=== PATIENT | female | born 1935 | race Caucasian/White ===

== ENCOUNTER 2018-07-16 16:34 | Observation (INO) ==
--- NOTE | 2018-07-16 17:42 | ED ---
HPI General Chief Complaint: Chest Pain Stated Complaint: Poss Cardiac Time Seen by Provider: 07/16/18 17:00 Source: patient Limitations: no limitations History of Present Illness HPI narrative: Patient is an 83-year-old female, past medical history significant for hypertension, atrial fibrillation on Coumadin, who presents with complaint of intermittent chest tightness/heaviness over the last 2-3 days. She has had intermittent dyspnea as well. No nausea nor vomiting. No cough nor congestion. No fever nor chills. No leg swelling or immobilization. She is not sure if exertion changes the pain at all. She does report that she has had increasing stress at home. complaint: chest pain Complete Quality Measures for STEMI Alert Patients STEMI Alert: No Onset (ago): day(s) Duration: intermittent Onset: during rest Pain location: substernal Severity: moderate Quality: tightness and heaviness Pain radiation: none Relieving factors: nothing Related Data Home Medications Medication Instructions Recorded Confirmed alendronate 70 mg PO QWEEK 07/16/18 07/16/18 alprazolam 0.5 mg PO BID PRN 07/16/18 07/16/18 diltiazem HCl 180 mg PO DAILY 07/16/18 07/16/18 ferrous sulfate 324 mg PO DAILY 07/16/18 07/16/18 latanoprost 0.005 % EACH EYE DAILY 07/16/18 07/16/18 levothyroxine 50 mcg PO DAILY 07/16/18 07/16/18 lisinopril 10 mg PO DAILY 07/16/18 07/16/18 pantoprazole 40 mg PO DAILY 07/16/18 07/16/18 warfarin 5 mg PO DAILY 07/16/18 07/16/18 Allergies Allergy/AdvReac Type Severity Reaction Status Date / Time amlodipine Allergy Severe Hives Unverified 07/16/18 16:43 diazepam Allergy Intermediate Convulsion Unverified 06/24/17 02:32 Sulfa (Sulfonamide Allergy Intermediate Hives Unverified 06/24/17 02:32 Antibiotics) Review of Systems ROS: all other systems reviewed are negative [facility] Social History Social History Substance History: No History of Abuse Second Hand Smoke Exposure: No Smoking Status: Never smoker How Often Do You Have a Drink Containing Alcohol: Never Immunization History Tetanus Immunization: Unsure Hx Influenza Vaccine This Season: No Exam Narrative Exam Narrative: GENERAL: Well-appearing, elderly female in no acute distress SKIN: Focused skin assessment warm/dry. No rashes. HEAD: Atraumatic. Normocephalic. EYES: Pupils equal and round. No scleral icterus. No injection or drainage. ENT: No nasal bleeding or discharge. Mucous membranes pink and moist. NECK: Trachea midline. No JVD. CARDIOVASCULAR: Regular rate and rhythm. No murmur appreciated. Intact and equal peripheral pulses. RESPIRATORY: No accessory muscle use. Clear to auscultation. Breath sounds equal bilaterally. GASTROINTESTINAL: Abdomen soft, non-tender, nondistended. Hepatic and splenic margins not palpable. MUSCULOSKELETAL: No obvious deformities. No clubbing. No cyanosis. No edema. NEUROLOGICAL: Awake and alert. No obvious cranial nerve deficits. Motor grossly within normal limits. Normal speech. PSYCHIATRIC: Appropriate mood and affect; insight and judgment normal. Course Initial Documented Vital Signs Temperature 99.0 F 07/16/18 17:02 Pulse Rate 77 07/16/18 17:02 Respiratory Rate 18 07/16/18 17:02 Blood Pressure 157/76 H 07/16/18 17:02 Pulse Oximetry 97 07/16/18 17:02 Last Documented Vital Signs Temperature 99.0 F 07/16/18 17:02 Pulse Rate 69 07/16/18 19:44 Respiratory Rate 16 07/16/18 19:44 Blood Pressure 139/69 07/16/18 19:44 Pulse Oximetry 99 07/16/18 19:44 Medical Decision Making [facility] Narrative Medical decision making narrative: Patient is an 83-year-old female who presents with complaint of chest pain that has been intermittent over the last several days. EKG is without acute ischemic changes. She took aspirin at home prior to arrival and pain improved with nitro here. Chest x-ray and labs including troponin are unremarkable. She has been placed in the chest pain center for serial troponins and likely stress test in the morning. Patient and her son are agreeable to this plan. All questions have been answered. Medical Screen Exam Complete: Yes Emergency Medical Condition: Yes Differential Diagnosis Differential Diagnosis: Differential diagnosis includes but is not limited to acute coronary syndrome, pneumonia, pneumothorax, Prinzmetal's angina, or electrolyte abnormality. Medical Records Medical records reviewed: Yes I reviewed the patient's medical records. Lab Data Lab results reviewed: Yes I reviewed the patient's lab results. Result diagrams: 07/16/18 17:45 07/16/18 17:45 Lab Results 07/16/18 07/16/18 07/16/18 Range/Units 17:45 17:45 17:45 WBC 6.4 (4.0-11.0) th/mm3 RBC 4.37 (4.00-5.30) mil/mm3 Hgb 12.9 (11.6-15.3) gm/dL Hct 36.4 (35.0-46.0) % MCV 83.3 (80.0-100.0) fL MCH 29.4 (27.0-34.0) pg MCHC 35.3 (32.0-36.0) % RDW 13.5 (11.6-17.2) % Plt Count 170 (150-450) th/mm3 MPV 8.6 (7.0-11.0) fL PT (9.8-11.6) sec INR Ratio Sodium 141 Cancelled (136-145) meq/L Potassium 4.4 Cancelled (3.5-5.1) meq/L Chloride 106 Cancelled (98-107) meq/L Carbon Dioxide 26.9 Cancelled (21.0-32.0) meq/L Anion Gap 8 Cancelled (5-15) meq/L BUN 20 H Cancelled (7-18) mg/dL Creatinine 0.72 Cancelled (0.50-1.00) mg/dL Estimated GFR 77 L Cancelled (>89) mL/min Random Glucose 95 Cancelled (74-106) mg/dL Calcium 9.3 Cancelled (8.5-10.1) mg/dL Troponin I Less than 0.02 L (0.02-0.05) ng/mL 07/16/18 Range/Units 17:45 WBC (4.0-11.0) th/mm3 RBC (4.00-5.30) mil/mm3 Hgb (11.6-15.3) gm/dL Hct (35.0-46.0) % MCV (80.0-100.0) fL MCH (27.0-34.0) pg MCHC (32.0-36.0) % RDW (11.6-17.2) % Plt Count (150-450) th/mm3 MPV (7.0-11.0) fL PT 17.7 H (9.8-11.6) sec INR 1.7 Ratio Sodium (136-145) meq/L Potassium (3.5-5.1) meq/L Chloride (98-107) meq/L Carbon Dioxide (21.0-32.0) meq/L Anion Gap (5-15) meq/L BUN (7-18) mg/dL Creatinine (0.50-1.00) mg/dL Estimated GFR (>89) mL/min Random Glucose (74-106) mg/dL Calcium (8.5-10.1) mg/dL Troponin I (0.02-0.05) ng/mL Imaging Data Attestation: I personally reviewed and interpreted this imaging study as follows : My impression: Unremarkable. Radiologist's impression: Chest X-Ray 07/16/18 17:25 CONCLUSION: Mild interstitial prominence with normal heart size correlation suggested. ECG Data EKG Prior to Arrival: No Attestation: I personally reviewed and interpreted this ECG as follows: Discharge Plan Discharge Disposition Patient Disposition: 30 Still Patient Discharge Condition Condition: Stable Discharge Details Diagnosis: Chest pain, rule out acute myocardial infarction Physicians Team ED Provider: Nicolasa Loyd Primary Care Provider: Gabriel Fernández V Attending Provider: Melissa Prieto ED Status: Admitted Observation Patient
--- NOTE | 2018-07-16 17:51 | XR ---
EXAM DATE: 07/16/2018 5:46 PM EDT AGE/SEX: 83 years / Female INDICATIONS: . Chest pain. Dry cough. CLINICAL DATA: This is the patient's initial encounter. Patient reports that signs and symptoms have been present for 2 days and indicates a pain score of 0/10. MEDICAL/SURGICAL HISTORY: Hypertension. . Pacemaker. COMPARISON: POI, XR CHEST PA AND LAT, 02/25/2017. . FINDINGS: Pacemaker left chest. Mild interstitial prominence with normal cardiac silhouette. No pleural effusio n, pneumothorax or infiltrate. The portion of the bony skeleton visualized is unremarkable. CONCLUSION: Mild interstitial prominence with normal heart size correlation suggested. Electronically signed by: Thai Stewart MD 07/16/2018 5:50 PM EDT
[2018-07-16 18:12] LABS: Hematocrit 36.4 % (35.0-46.0); Hemoglobin 12.9 gm/dL (11.6-15.3); Mean Corpuscular HGB Conc 35.3 % (32.0-36.0); Mean Corpuscular Hemoglobin 29.4 pg (27.0-34.0); Mean Corpuscular Volume 83.3 fL (80.0-100.0); Mean Platelet Volume 8.6 fL (7.0-11.0); Platelet Count 170 th/mm3 (150-450); Red Blood Count 4.37 mil/mm3 (4.00-5.30); Red Cell Distribution Width 13.5 % (11.6-17.2); White Blood Count 6.4 th/mm3 (4.0-11.0)
[2018-07-16 18:27] LABS: INR 1.7 Ratio; Prothrombin Time 17.7 sec (9.8-11.6)
[2018-07-16 18:36] LABS: Anion Gap 8 meq/L (5-15); Blood Urea Nitrogen 20 mg/dL (7-18); Calcium 9.3 mg/dL (8.5-10.1); Carbon Dioxide 26.9 meq/L (21.0-32.0); Chloride 106 meq/L (98-107); Glomerular Filtration Rate 77 mL/min (>89); Glucose,Random 95 mg/dL (74-106); Sodium 141 meq/L (136-145)
[2018-07-16 18:37] LABS: Potassium 4.4 meq/L (3.5-5.1)
[2018-07-16 21:54] LABS: Creatine Kinase 56 U/L (26-192)
[2018-07-16] MEDS ORDERED: Acetaminophen 500 MG Tablet PO PRN (23:27)
[2018-07-17 01:00] LABS: Creatine Kinase 58 U/L (26-192)
--- NOTE | 2018-07-17 09:09 | P.HPCA ---
History of Present Illness Primary Care Physician: Gabriel Fernández MD Chief Complaint: Chest tightness History of Present Illness: 83 year old female with history atrial fibrillation, hypertension, and emergency room for further evaluation intermittent, nonexertional chest pressure. Onset 2-3 days. Characterized as "tingling and tightness." Location substernal. No radiation. Initially severity was mild. Yesterday became anxious regarding living situation. Reports becoming "trembly," nauseous , with moderate chest tightness. Duration constant, never resolving completely. Currently described as "mild." Breathing did not affect discomfort. No particular movement or position made pain better or worse. No relieving factors. Yesterday afternoon a landlord passenger relations representative was at apartment. Endorses becoming anxious. Apparently apartment currently leaking water from AC unit causing mold in the [place]. Sap Specialist appointment was to scheduled repair of damage. The passenger relations representative became concerned over patients symptoms and called EMS. Endorse history of anxiety. Patient foundry metallurgist is Dr. Lozano. No known CAD, diabetes, or hyperlipidemia. No recent illness, fever, or injury. Currently has a nonproductive intermittent cough she relates to allergies. Past cardiac testing 12/16/14 Lexiscan-normal exam. EF greater than 70%. Patient's foundry metallurgist is Dr. Lozano. No recent cardiac testing. Does not recall ever having cardiac catheterization. Pacemaker placed while living in [place] approximately 6 years ago, placed for "an arrhythmia." Social history Lives with son. Lifelong non-smoker. Denies any alcohol or recreational drug use. Endorses an active lifestyle. Ambulates independently. - Diagnosis (1) Atypical chest pain (2) History of atrial fibrillation Review of Systems All other systems reviewed negative except as stated in HPI PMFSH - History History Provided By: Patient - Medical History Medical History: Medical History (Last Updated 07/17/18 @ 09:50 by KIKI Stockton) History of cardiac pacemaker (Acute) Anxiety Atrial fibrillation Hypertension - Social History I have reviewed the patient's Social History: Yes - Tobacco History Second Hand Smoke Exposure: No Smoking Status: Never smoker - Alcohol History How Often Do You Have a Drink Containing Alcohol: Never - Substance Use History Substance History: No History of Abuse - Travel History Recent Travel in the [place] Within the Last 8 Weeks: No Recent Travel Out of the Country Within the Last 8 Weeks: No - Immunization History Tetanus Immunization: Unsure Hx Influenza Vaccine This Season: No Medications and Allergies Active Medications: Active Medications Acetaminophen (Tylenol) 500 mg PO Q4H PRN PRN Reason: H/A Last Admin: 07/16/18 23:49 Dose: 500 mg Ondansetron HCl (Zofran Inj) 4 mg IV.PUSH Q6H PRN PRN Reason: NAUSEA Sodium Chloride (Ns Flush) 2 ml IV.FLUSH UNSCH PRN PRN Reason: FLUSH AFTER USING IV ACCESS Sodium Chloride (Ns Flush) 2 ml IV.FLUSH BID RONAK Last Admin: 07/17/18 08:51 Dose: 2 ml Sodium Chloride (Ns Flush) 2 ml IV.FLUSH PRN PRN PRN Reason: FLUSH AFTER USING IV ACCESS Allergies Allergy/AdvReac Type Severity Reaction Status Date / Time amlodipine Allergy Severe Hives Unverified 07/16/18 16:43 diazepam Allergy Intermediate Convulsion Unverified 06/24/17 02:32 Sulfa (Sulfonamide Allergy Intermediate Hives Unverified 06/24/17 02:32 Antibiotics) Home Medications Medication Instructions Recorded Confirmed Type alendronate 70 mg PO QWEEK 07/16/18 07/16/18 History alprazolam 0.5 mg PO BID PRN 07/16/18 07/16/18 History diltiazem HCl 180 mg PO DAILY 07/16/18 07/16/18 History ferrous sulfate 324 mg PO DAILY 07/16/18 07/16/18 History latanoprost 0.005 % EACH EYE DAILY 07/16/18 07/16/18 History levothyroxine 50 mcg PO DAILY 07/16/18 07/16/18 History lisinopril 10 mg PO DAILY 07/16/18 07/16/18 History pantoprazole 40 mg PO DAILY 07/16/18 07/16/18 History warfarin 5 mg PO DAILY 07/16/18 07/16/18 History Exam Vital signs: Vital Signs 07/16/18 17:02 07/16/18 17:17 07/16/18 17:54 Temperature 99.0 F Pulse Rate 77 Respiratory Rate 18 18 Blood Pressure 157/76 H Pulse Oximetry 97 97 07/16/18 18:00 07/16/18 19:44 07/16/18 21:10 Temperature Pulse Rate 65 69 69 Respiratory Rate 16 Blood Pressure 153/72 H 139/69 Pulse Oximetry 97 99 96 07/16/18 21:46 07/17/18 00:01 07/17/18 00:33 Temperature 98.4 F 98.2 F Pulse Rate 72 71 Respiratory Rate 18 18 20 Blood Pressure 148/72 H 149/76 H Pulse Oximetry 98 97 07/17/18 04:40 07/17/18 08:08 Temperature 98.0 F 98.0 F Pulse Rate 73 71 Respiratory Rate 18 16 Blood Pressure 127/70 154/76 H Pulse Oximetry 96 99 Intake & Output 07/16/18 07/17/18 07/17/18 18:59 06:59 18:59 Intake Total 880 / 880 Balance 880 / 880 Weight 47.174 kg 47.174 kg Intake: Oral 880 / 880 Other: # Voids 2 Date of Last Bowel Movement 07/15/18 Weight On Admission 47.174 kg Narrative: GENERAL: Alert WN, WD, NAD, pleasant, mildly anxious, elderly female HEAD: NC, AT EYES: Sclera clear ENT: Mucous membranes pink and moist, poor mentation NECK: Supple, no masses, trachea midline CV: RRR, without murmur, rub, gallop, no JVD, S1-S2 no S3-S4. Chest wall nontender to palpation. RESP: Clear lungs throughout bilateral, no crackles, wheeze, rhonchi, symmetrical chest rise, nonlabored, able to speak in full sentences ABD: Soft, NT, ND, no masses, positive bowel tones EXT: Pulses +2x4, no dependent edema MS: Normal tone x4 extremities, nontender, no obvious deformities, full range of motion NEURO: CN II through CN XII grossly intact, motor strength 5/5 PSYCH: A+O x3, pleasant affect, appropriate speech, mood, insight and judgment SKIN: Normal turgor, normal texture, no lesions, no rashes, brisk cap refill, even hair distribution Results 07/16/18 17:45 07/16/18 17:45 Cardiac Enzymes 07/16/18 07/16/18 07/16/18 Range/Units 17:45 20:40 23:50 Troponin I Less than 0.02 L Less than 0.02 L Less than 0.02 L (0.02-0.05) ng/mL Coagulation 07/16/18 Range/Units 17:45 PT 17.7 H (9.8-11.6) sec CBC 07/16/18 Range/Units 17:45 WBC 6.4 (4.0-11.0) th/mm3 RBC 4.37 (4.00-5.30) mil/mm3 Hgb 12.9 (11.6-15.3) gm/dL Hct 36.4 (35.0-46.0) % Plt Count 170 (150-450) th/mm3 Comprehensive Metabolic Panel 07/16/18 07/16/18 Range/Units 17:45 17:45 Sodium 141 Cancelled (136-145) meq/L Potassium 4.4 Cancelled (3.5-5.1) meq/L Chloride 106 Cancelled (98-107) meq/L Carbon Dioxide 26.9 Cancelled (21.0-32.0) meq/L BUN 20 H Cancelled (7-18) mg/dL Creatinine 0.72 Cancelled (0.50-1.00) mg/dL Calcium 9.3 Cancelled (8.5-10.1) mg/dL Intake and Output 07/16/18 07/17/18 07/17/18 22:59 06:59 14:59 Intake Total 880 / 880 Balance 880 / 880 Intake: Oral 880 / 880 Other: # Voids 2 Date of Last Bowel Movement 07/15/18 Weight 47.174 kg Weight On Admission 47.174 kg EKG interpretations - EKG EKG results cardiology: normal ST/T (atrial paced, no st t segment changes) Caprini VTE Risk Assessment Caprini VTE Risk Assessment: Moderate/High Risk (score >= 2) Caprini Risk Assessment Model: Point Value = 1 Point Value = 2 Point Value = 3 Point Value = 5 Age 41-60 Minor surgery BMI > 25 kg/m2 Swollen legs Varicose veins or History of unexplained or recurrent spontaneous Oral contraceptives or hormone replacement Sepsis (< 1 month) Serious lung disease, including pneumonia (< 1 month) Abnormal pulmonary function Acute myocardial infarction Congestive heart failure (< 1 month) History of inflammatory bowel disease Medical patient at bed rest Age 61-74 Arthroscopic surgery Major open surgery (> 45 min) Laparoscopic surgery (> 45 min) Malignancy Confined to bed (> 72 hours) Immobilizing plaster cast Central venous access Age >= 75 History of VTE Family history of VTE Factor V Leiden Prothrombin [id number] Lupus anticoagulant Anticardiolipin antibodies Elevated serum homocysteine Heparin-induced thrombocytopenia Other congenital or acquired thrombophilia Stroke (< 1 month) Elective arthroplasty Hip, pelvis, or leg fracture Acute spinal cord injury (< 1 month) Prophylaxis Regimen: Total Risk Factor Score Risk Level Prophylaxis Regimen 0-1 Low Early ambulation 2 Moderate Order ONE of the following: *Sequential Compression Device (SCD) *Heparin 5000 units SQ BID 3-4 Higher Order ONE of the following medications: *Heparin 5000 units SQ TID *Enoxaparin/Lovenox 40 mg SQ daily (WT < 150 kg, CrCl > 30 mL/min) *Enoxaparin/Lovenox 30 mg SQ daily (WT < 150 kg, CrCl > 10-29 mL/min) *Enoxaparin/Lovenox 30 mg SQ BID (WT < 150 kg, CrCl > 30 mL/min) AND/OR *Sequential Compression Device (SCD) 5 or more Highest Order ONE of the following medications: *Heparin 5000 units SQ TID (Preferred with Epidurals) *Enoxaparin/Lovenox 40 mg SQ daily (WT < 150 kg, CrCl > 30 mL/min) *Enoxaparin/Lovenox 30 mg SQ daily (WT < 150 kg, CrCl > 10-29 mL/min) *Enoxaparin/Lovenox 30 mg SQ BID (WT < 150 kg, CrCl > 30 mL/min) AND *Sequential Compression Device (SCD) Assessment and Plan - Assessment (1) Atypical chest pain Code(s): R07.89 - Other chest pain Status: Acute Plan: Admitted chest pain center. ACS ruled out 3 sets of EKGs and cardiac enzymes. Will be seen evaluated by Dr. Dawson Weber. Comfort likely related to situational stress. Discussed possible cardiac testing later this morning. This will be determined after evaluation by foundry metallurgist. Verbalized understanding and agreeable to plan of care. (2) History of atrial fibrillation Code(s): Z86.79 - Personal history of other diseases of the circulatory system Status: Chronic Plan: Continue Cardizem and warfarin. H&P: Quality - VTE Deep Vein Thrombosis/Pulmonary Embolism Present on Admission: No
[2018-07-17] MEDS ORDERED: Pantoprazole Sodium 20 MG DR Tablet PO SCH (10:00)
[2018-07-17] MEDS ORDERED: dilTIAZem CD 180 MG Capsule PO SCH (11:00)
--- NOTE | 2018-07-17 12:16 | P.PNCA ---
Subjective Interval history: Very pleasant 83-year-old lady with history of hypertension chronic atrial fibrillation and very nervous. She presents with atypical chest pain is documented by the nurse practitioner. The patient history was reviewed documentation was reviewed laboratory radiographic and electrocardiographic data was reviewed. I am in agreement with all of these. The patient was then seen and examined personally. Her presentation is very atypical for ischemic heart disease and she is already ruled out for ACS. She states that she walks regularly and well and so she will be evaluated with an exercise stress test. Physical Exam Vital signs: Vital Signs 07/16/18 17:02 07/16/18 17:17 07/16/18 17:54 Temperature 99.0 F Pulse Rate 77 Respiratory Rate 18 18 Blood Pressure 157/76 H Pulse Oximetry 97 97 07/16/18 18:00 07/16/18 19:44 07/16/18 21:10 Temperature Pulse Rate 65 69 69 Respiratory Rate 16 Blood Pressure 153/72 H 139/69 Pulse Oximetry 97 99 96 07/16/18 21:46 07/17/18 00:01 07/17/18 00:33 Temperature 98.4 F 98.2 F Pulse Rate 72 71 Respiratory Rate 18 18 20 Blood Pressure 148/72 H 149/76 H Pulse Oximetry 98 97 07/17/18 04:40 07/17/18 08:08 07/17/18 09:00 Temperature 98.0 F 98.0 F Pulse Rate 73 71 69 Respiratory Rate 18 16 Blood Pressure 127/70 154/76 H Pulse Oximetry 96 99 Intake & Output 07/16/18 07/17/18 07/17/18 18:59 06:59 18:59 Intake Total 880 / 880 Balance 880 / 880 Weight 47.174 kg 47.174 kg Intake: Oral 880 / 880 Other: # Voids 2 Date of Last Bowel Movement 07/15/18 Weight On Admission 47.174 kg Narrative: Patient was examined and I am in agreement with the documentation as entered. Chest diminished breath sounds but clear to auscultation with no rales wheezes or rhonchi Cardiovascular regular rhythm no gallops rubs or murmurs Abdomen soft nontender Assessment and Plan - Assessment (1) Atypical chest pain Code(s): R07.89 - Other chest pain Status: Acute Plan: Admitted chest pain center. ACS ruled out 3 sets of EKGs and cardiac enzymes. Will be seen evaluated by Dr. Dawson Weber. Comfort likely related to situational stress. Discussed possible nuclear testing later this morning. This will be determined after evaluation by v belt coverer. Sammy understanding and agreeable to plan of care. (2) History of atrial fibrillation Code(s): Z86.79 - Personal history of other diseases of the circulatory system Status: Chronic Plan: Continue Cardizem and warfarin.
--- NOTE | 2018-07-17 12:27 | ECG ---
Date Performed: 07/17/2018 Time Performed: 00:33:43 PTAGE: 83 years EKG: ELECTRONIC ATRIAL PACEMAKER ABNORMAL RHYTHM ECG No significant change PREVIOUS TRACING : 07/16/2018 20.41 DOCTOR: Dawson Weber Interpretating Date/Time 07/17/2018 12:25:47
--- NOTE | 2018-07-17 12:30 | ECG ---
Date Performed: 07/16/2018 Time Performed: 20:41:54 PTAGE: 83 years EKG: ELECTRONIC ATRIAL PACEMAKER ABNORMAL RHYTHM ECG No significant change PREVIOUS TRACING : 02/09/2015 05.27 DOCTOR: Dawson Weber Interpretating Date/Time 07/17/2018 12:29:37
--- NOTE | 2018-07-17 12:32 | ECG ---
Date Performed: 07/16/2018 Time Performed: 16:59:24 PTAGE: 83 years EKG: Sinus rhythm NORMAL ECG INTERPRETATION BASED ON A DEFAULT AGE OF 40 YEARS Normalization compared to prior tracing NO PREVIOUS TRACING DOCTOR: Dawson Weber Interpretating Date/Time 07/17/2018 12:30:54
[2018-07-18] MEDS ORDERED: Levothyroxine 50 MCG Tablet PO SCH (06:00)
--- NOTE | 2018-07-18 13:31 | TR ---
Date Performed: 07/17/2018 Time Performed: 12:44:53 DOCTOR: Dawson Weber DRUG LIST: CLINICAL HISTORY: REASON FOR TEST: Chest pain RULE OUT OH REASON FOR ENDING: OBSERVATION: CONCLUSION: Modified macario protocol completed. Stopped sec to leg fatigue and reaching target he art rate. . Maximum HD=883 Target HR Achieve 84%. Maximum MR=261/90 Total Exercise Time=6:01. No repo rd chest discomfort. Minimal st depression inferiorly and V5-V6. Good exercise tolerance. Normal bp r esponse. COMMENTS:
== END 2018-07-17 14:45 | disposition home or self-care (01) ==
LOC: NEDA 16:34 → NEPD 16:34 → NEPFCDU 21:33
PROVIDERS: ADMIT Internal Medicine Interventional Cardiology; ATTEND Internal Medicine Interventional Cardiology